=== PATIENT | male | born 1965 | race Caucasian/White ===

== ENCOUNTER 2017-12-30 20:06 | Emergency (ER) | payer OTHER ==
--- NOTE | 2017-12-30 21:46 | EDPHY ---
H & P Stated Complaint: ABD PAIN, RECTAL BLEEDING, ETOH, GETTING WORSE OVER 2 WKS, [facility] SENT PT HERE Time Seen by Provider: 12/30/17 21:41 HPI/ROS: CHIEF COMPLAINT: Intermittent hematochezia HISTORY OF PRESENT ILLNESS: The patient presents the ED for evaluation of intermittent hematochezia for the past 2 weeks. The patient does have a history of alcohol abuse. The patient reports he drinks 2-3 drinks on a daily basis. The patient reports bright red blood with stool while having bowel movements. He denies any significant upper abdominal pain. He denies prior history of varices or known liver disease. The patient admittedly has poor follow up with primary care. The patient denies any fever, cough or congestion. He denies any lightheadedness or presyncope. REVIEW OF SYSTEMS: A comprehensive 10 point review of systems is otherwise negative aside from elements mentioned in the history of present illness. Source: Patient Exam Limitations: No limitations - Personal History Current Tetanus/Diphtheria Vaccine: Yes - Medical/Surgical History Hx Asthma: No Hx Chronic Respiratory Disease: No Hx Diabetes: No Hx Cardiac Disease: No Hx Renal Disease: No Hx Cirrhosis: No Hx Alcoholism: Yes Hx HIV/AIDS: No Hx Splenectomy or Spleen Trauma: No Other PMH: PMH:htn. PSH:dental. ALCOHOLISM - Social History Smoking Status: Current some day smoker - Physical Exam Exam: General Appearance: Alert, no distress Eyes: Pupils equal and round no pallor or injection ENT, Mouth: Mucous membranes moist Respiratory: There are no retractions, lungs are clear to auscultation Cardiovascular: Regular rate and rhythm Gastrointestinal: Abdomen is soft and nontender, no masses, bowel sounds normal Rectal: Scant hematochezia Neurological: 5/5 strength all 4 extremities Skin: Warm and dry, no rashes Musculoskeletal: Neck is supple nontender Extremities: symmetrical, full range of motion Constitutional: Initial Vital Signs Temperature (C) 36.8 C 12/30/17 20:27 Heart Rate 74 12/30/17 20:27 Respiratory Rate 22 H 12/30/17 20:27 Blood Pressure 141/96 H 12/30/17 20:27 O2 Sat (%) 99 12/30/17 20:27 O2 Delivery Mode Room Air Allergies/Adverse Reactions: ANTIBIOTIC Allergy (Uncoded 12/30/17 20:27) Home Medications: Medication Instructions Recorded Pantoprazole Sodium [Protonix 40mg 40 mg PO DAILY #30 tab 12/30/17 (*)] Medical Decision Making ED Course/Re-evaluation: The patient presents the ED with several weeks of hematochezia. The patient is hemodynamically stable with a normal hematocrit. The patient likely is having a lower GI source based upon his history and physical exam findings. I do feel that the patient is appropriate to follow up with Gastroenterology as an outpatient. The patient will be given a prescription for Protonix. He is also advised to stop drinking alcohol. He is provided local resources with [facility]. Patient has been advised to return to the ED for the development of severe pain , heavy bleeding or other concerns. The patient is also given the contact number of our on-call primary care provider to help establish a primary care relationship. Differential Diagnosis: Differential diagnosis considered includes upper GI bleed, lower GI bleed, critical anemia, hemorrhoid - Data Points Laboratory Results: Laboratory Results 12/30/17 22:20 12/30/17 22:20 12/30/17 12/30/17 12/30/17 22:30 22:20 22:20 WBC RBC Hgb Hct MCV MCH MCHC RDW Plt Count MPV Neut % (Auto) Lymph % (Auto) [place] % (Auto) Eos % (Auto) Baso % (Auto) Nucleat RBC Rel Count Absolute Neuts (auto) Absolute Lymphs (auto) Absolute Monos (auto) Absolute Eos (auto) Absolute Basos (auto) Absolute Nucleated RBC Immature Gran % Immature Gran # PT 14.1 SEC SEC (12.0-15.0) INR 1.07 (0.83-1.16) Sodium 142 mEq/L mEq/L (135-145) Potassium 4.1 mEq/L mEq/L (3.5-5.2) Chloride 103 mEq/L mEq/L (97-110) Carbon Dioxide 22 mEq/l mEq/l (22-31) Anion Gap 17 mEq/L H mEq/L (8-16) BUN 14 mg/dL mg/dL (7-23) Creatinine 0.8 mg/dL mg/dL (0.7-1.3) Estimated GFR > 60 Glucose 95 mg/dL mg/dL (70-100) Calcium 8.9 mg/dL mg/dL (8.5-10.4) Total Bilirubin 1.0 mg/dL mg/dL (0.1-1.4) Conjugated Bilirubin 0.5 mg/dL mg/dL (0.0-0.5) Unconjugated Bilirubin 0.5 mg/dL mg/dL (0.0-1.1) AST 154 IU/L H IU/L (17-59) ALT 107 IU/L H IU/L (21-72) Alkaline Phosphatase 81 IU/L IU/L (38-126) Total Protein 7.9 g/dL g/dL (6.3-8.2) Albumin 4.6 g/dL g/dL (3.5-5.0) Lipase 337 IU/L H IU/L (23-300) Stool Occult Bld Scrn POSITIVE H (NEGATIVE) 12/30/17 22:20 WBC 4.05 10^3/uL 10^3/uL (3.80-9.50) RBC 4.79 10^6/uL 10^6/uL (4.40-6.38) Hgb 15.4 g/dL g/dL (13.7-17.5) Hct 42.8 % % (40.0-51.0) MCV 89.4 fL fL (81.5-99.8) MCH 32.2 pg pg (27.9-34.1) MCHC 36.0 g/dL g/dL (32.4-36.7) RDW 12.5 % % (11.5-15.2) Plt Count 148 10^3/uL L 10^3/uL (150-400) MPV 10.0 fL fL (8.7-11.7) Neut % (Auto) 38.4 % L % (39.3-74.2) Lymph % (Auto) 52.3 % H % (15.0-45.0) [place] % (Auto) 7.2 % % (4.5-13.0) Eos % (Auto) 0.7 % % (0.6-7.6) Baso % (Auto) 1.2 % % (0.3-1.7) Nucleat RBC Rel Count 0.0 % % (0.0-0.2) Absolute Neuts (auto) 1.55 10^3/uL L 10^3/uL (1.70-6.50) Absolute Lymphs (auto) 2.12 10^3/uL 10^3/uL (1.00-3.00) Absolute Monos (auto) 0.29 10^3/uL L 10^3/uL (0.30-0.80) Absolute Eos (auto) 0.03 10^3/uL 10^3/uL (0.03-0.40) Absolute Basos (auto) 0.05 10^3/uL 10^3/uL (0.02-0.10) Absolute Nucleated RBC 0.00 10^3/uL 10^3/uL (0-0.01) Immature Gran % 0.2 % % (0.0-1.1) Immature Gran # 0.01 10^3/uL 10^3/uL (0.00-0.10) PT INR Sodium Potassium Chloride Carbon Dioxide Anion Gap BUN Creatinine Estimated GFR Glucose Calcium Total Bilirubin Conjugated Bilirubin Unconjugated Bilirubin AST ALT Alkaline Phosphatase Total Protein Albumin Lipase Stool Occult Bld Scrn Medications Given: Discontinued Medications Sodium Chloride (Ns) 1,000 mls @ 0 mls/hr IV EDNOW ONE; Wide Open PRN Reason: Protocol Stop: 12/30/17 22:31 Last Admin: 12/30/17 22:46 Dose: 1,000 mls Lorazepam (Ativan Injection) 1 mg IVP EDNOW ONE Stop: 12/30/17 22:31 Last Admin: 12/30/17 22:46 Dose: 1 mg Departure - Departure Disposition: Home, Routine, Self-Care Clinical Impression: Lower GI bleed Condition: Good Instructions: Gastrointestinal Bleeding (ED), Chlordiazepoxide/Clidinium (By mouth) Additional Instructions: 1. I recommend establishing a relationship with a primary care provider you have been given the contact number of our on-call PCP Dr. Fung. 2. Please return to the ED for heavy bleeding. I also recommend following up with Gastroenterology as further workup is indicated for evaluation of your GI bleeding. Please contact their office to schedule a follow-up tomorrow. Our on -call guest service team leader is Dr. Rosalind Penny. 3. There is a facility called [facility] which operates a 24 hr alcohol detox here in [place]. You have been given their contact information. 4. I do recommend curtailing your alcohol use. 5. Please begin taking Protonix which is a anti acid medication as prescribed. 6. You can take Librium 25 mg 3 times a day as needed for symptoms of alcohol withdrawal. Referrals: [facility] [Outside] - As per Instructions Rosalind Penny MD [Medical Doctor] - As per Instructions Char Fung MD [Medical Doctor] - As per Instructions Prescriptions: Pantoprazole Sodium [Protonix 40mg (*)] 40 mg PO DAILY #30 tab
[2017-12-30 22:27] LABS: PLATELET COUNT 148 10^3/uL (150-400)
[2017-12-30] MEDS ORDERED: LORazepam 2 MG/ML INJ IVP ONE (22:30)
[2017-12-30] MEDS ORDERED: NS 1,000 ML IV ONE (22:30)
[2017-12-30 22:41] LABS: INR 1.07 (0.83-1.16); PROTIME(PATIENT) 14.1 SEC (12.0-15.0)
[2017-12-30] MEDS ORDERED: CHLORDIAZEPOXIDE 25MG PREPK#6 BTL TAKEHOME ONE (23:26)
[2017-12-30 23:45] VITALS: BP 145/100
== END 2017-12-30 23:46 | disposition home or self-care (01) ==
DX: K92.2 Gastrointestinal hemorrhage, unspecified (principal); I10 Essential (primary) hypertension; E86.9 Volume depletion, unspecified; F17.200 Nicotine dependence, unspecified, uncomplicated
CPT/HCPCS: 96374; J2060